=== PATIENT | female | born 2000 | race Two or more races ===

== ENCOUNTER 2022-07-22 14:20 | Emergency (ER) | payer OTHER ==
[~2022-07-22] VITALS: Ht 162.6 cm; Wt 77.6 kg
[2022-07-22] MEDS ORDERED: ONDANSETRON 4 MG TAB.RAPDIS SL ONE (15:30)
[2022-07-22] MEDS ORDERED: FAMOTIDINE (20 MG) 20 MG TABLET PO ONE (15:30)
[2022-07-22 15:50] LABS: BASOPHILS % (AUTO) 0.2 % (0.0-2.0); EOSINOPHILS % (AUTO) 0.2 % (0.0-6.0); HEMATOCRIT 41 % (33-45); HEMOGLOBIN 13.8 g/dL (11.5-14.8); LYMPHOCYTES # (AUTO) 1.4 K/uL (0.8-4.8); LYMPHOCYTES % (AUTO) 14.3 % (20.0-44.0); MEAN CORPUSCULAR HGB CONC 34 g/dl (31.0-36.0); MEAN CORPUSCULAR VOLUME 87 fL (82-100); MONOCYTES # (AUTO) 0.5 K/uL (0.1-1.30); NEUTROPHILS # (AUTO) 8.1 K/uL (1.8-8.9); NEUTROPHILS % (AUTO) 80.3 % (43.0-81.0); PLATELET COUNT (AUTO) 278 K/uL (150-450)
[2022-07-22 15:58] LABS: CALCIUM, SERUM 9.1 mg/dL (8.5-10.1); CREATININE 0.7 mg/dL (0.6-1.3); POTASSIUM 3.7 mmol/L (3.5-5.1)
[2022-07-22 16:04] LABS: BILIRUBIN,DIRECT 0.1 mg/dL (0.0-0.2); BILIRUBIN,TOTAL 0.4 mg/dL (0.2-1.0); TOTAL PROTEIN, SERUM 8.5 g/dL (6.4-8.2)
--- NOTE | 2022-07-22 16:28 | NUR ---
to er bed 10,no apparent change in condition
--- NOTE | 2022-07-22 16:45 | NUR ---
NO N/V AT THIS TIME ABDOMIN SOFT NONE TENDER TO TOUCH
[2022-07-22] MEDS ORDERED: ONDANSETRON 4 MG TAB.RAPDIS ONE (17:28)
[2022-07-22] MEDS ORDERED: FAMOTIDINE (20 MG) 20 MG TABLET ONE (17:28)
--- NOTE | 2022-07-22 17:35 | NUR ---
AWAITING DIPOSITION OF PATIENT BY .
[2022-07-22] MEDS ORDERED: ONDA4TAB5 PO (17:39)
--- NOTE | 2022-07-22 18:44 | NUR ---
Patient discharged to home in stable condition. Written and verbal after care instructions given. Patient verbalizes understanding of instruction.
[2022-07-22 19:07] VITALS: BP 134/79
== END 2022-07-22 19:16 | disposition home or self-care (01) ==
LOC: ER 14:27
DX: R11.2 Nausea with vomiting, unspecified (principal); R10.13 Epigastric pain
CPT/HCPCS: 99283; 85025; 80048; 83690; 80076; 36415; 84702; Q0162